=== PATIENT | female | born 1980 | race Caucasian/White ===

== ENCOUNTER 2019-02-03 15:04 | Emergency (ER) | payer SELFPAY ==
[2019-02-03] MEDS ORDERED: cefTRIAXone 500 MG in Lidocaine 1% 1 ML IM ONE (16:10)
[2019-02-03] MEDS ORDERED: Azithromycin 250 MG Tab PO ONE (16:10)
--- NOTE | 2019-02-03 16:34 | EDM.PDOC ---
ED HPI GENERAL MEDICAL PROBLEM - General Chief Complaint: Skin Complaint Stated Complaint: BOIL ON LEG AND STD CHECK Time Seen by Provider: 02/03/19 16:08 Source of Information: Reports: Patient History Limitations: Reports: No Limitations - History of Present Illness INITIAL COMMENTS - FREE TEXT/NARRATIVE: History of present illness: []Patient states her has been cheating on her and she has been having a vaginal odor so she wants to be treated for STD. Has a red spot on her buttock that she would like checked. Review of systems: As per history of present illness and below otherwise all systems reviewed and negative. Past medical history: As per history of present illness and as reviewed below otherwise noncontributory. Surgical history: As per history of present illness and as reviewed below otherwise noncontributory. Social history: No reported history of drug or alcohol abuse. Family history: As per history of present illness and as reviewed below otherwise noncontributory. Physical exam: General: Well developed, well nourished in NAD HEENT: Atraumatic, normocephalic, pupils reactive, negative for conjunctival pallor or scleral icterus, mucous membranes moist, throat clear, neck supple, nontender, trachea midline. Lungs: Clear to auscultation, breath sounds equal bilaterally, chest nontender. Heart: S1S2, regular, negative for clicks, rubs, or JVD. Abdomen: NABS, Soft, nondistended, nontender. Negative for masses or hepatosplenomegaly. Negative for costovertebral tenderness. Pelvis: Stable nontender. Genitourinary: Left posterior cheek with insect bite with raised erythema Rectal: Deferred. Extremities: Atraumatic, negative for cords or calf pain. Neurovascular unremarkable. Neuro: Awake, alert, oriented. Cranial nerves II through XII unremarkable. Cerebellum unremarkable. Motor and sensory unremarkable throughout. Exam nonfocal. Skin:warm and dry Diagnostics: HCG negative Therapeutics: Ceftriaxone, Zithromax ED Course: Stable Impression: Presumed STD infection Prescriptions: None Plan: Take meds as directed, follow up with your primary care physician, return to ER if symptoms worsen or change. Follow-up with women's health Definitive disposition and diagnosis as appropriate pending reevaluation and review of above. 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: , Spontaneous - Infectious Disease History Infectious Disease History: Reports: Chicken Pox, Mumps - Past Surgical History GI Surgical History: Reports: Appendectomy Social & Family History - Family History Family Medical History: Noncontributory - Tobacco Use Smoking Status *Q: Current Every Day Smoker Years of Tobacco use: 21 Packs/Tins Daily: 1 Used Tobacco, but Quit: No Second Hand Smoke Exposure: Yes - Caffeine Use Caffeine Use: Reports: Coffee - Recreational Drug Use Recreational Drug Use: No ED ROS GENERAL - Review of Systems Review Of Systems: See Below ED EXAM, SKIN/RASH Exam: See Below Course - Vital Signs Last Recorded V/S: Last Vital Signs Temp Pulse 101 H 02/03/19 15:37 Resp 20 02/03/19 15:37 BP 121/70 02/03/19 15:37 Pulse Ox 96 02/03/19 15:37 - Orders/Labs/Meds Labs: Laboratory Tests 02/03/19 Range/Units 16:30 Urine HCG, Qual NEGATIVE (NEGATIVE) Meds: Medications Discontinued Medications Generic Name Dose Route Start Last Admin Trade Name Flores PRN Reason Stop Dose Admin Azithromycin 1,000 mg 02/03/19 16:10 02/03/19 16:29 Zithromax PO 02/03/19 16:11 1,000 mg Q24H ONE Administration Ceftriaxone Sodium 500 mg/ 1 mls @ 1 mls/sec 02/03/19 16:10 02/03/19 16:29 Lidocaine HCl IM 02/03/19 16:11 1 mls/sec ONETIME ONE Administration Departure - Departure Time of Disposition: 16:52 Disposition: Home, Self-Care 01 Condition: Good Clinical Impression: Concern about STD in female without diagnosis - Discharge Information *PRESCRIPTION DRUG MONITORING PROGRAM REVIEWED*: No *COPY OF PRESCRIPTION DRUG MONITORING REPORT IN PATIENT MEERA: No Instructions: Preventing Sexually Transmitted Infections, Adult Referrals: PCP,Unknown [Primary Care Provider] - Forms: ED Department Discharge Additional Instructions: The following information is given to patients seen in the emergency department who are being discharged to home. This information is to outline your options for follow-up care. We provide all patients seen in our emergency department with a follow-up referral. The need for follow-up, as well as the timing and circumstances, are variable depending upon the specifics of your emergency department visit. If you don't have a primary care physician on staff, we will provide you with a referral. We always advise you to contact your personal physician following an emergency department visit to inform them of the circumstance of the visit and for follow-up with them and/or the need for any referrals to a consulting specialist. The emergency department will also refer you to a specialist when appropriate. This referral assures that you have the opportunity for follow-up care with a specialist. All of these measure are taken in an effort to provide you with optimal care, which includes your follow-up. Under all circumstances we always encourage you to contact your private physician who remains a resource for coordinating your care. When calling for follow-up care, please make the office aware that this follow-up is from your recent emergency room visit. If for any reason you are refused follow-up, please contact the [facility] Emergency Department at and asked to speak to the emergency department charge nurse. [facility] - [facility] [address] [place] [id number]
== END 2019-02-03 17:00 | disposition home or self-care (01) ==
LOC: MW.ED 15:04
DX: S30.860A Insect bite (nonvenomous) of lower back and pelvis, initial encounter (principal); Z11.3 Encounter for screening for infections with a predominantly sexual mode of transmission; F17.210 Nicotine dependence, cigarettes, uncomplicated; Z90.49 Acquired absence of other specified parts of digestive tract; Z79.899 Other long term (current) drug therapy; W57.XXXA Bitten or stung by nonvenomous insect and other nonvenomous arthropods, initial encounter
CPT/HCPCS: 81025; 99283; A9270; J0696; J2001